=== PATIENT | female | born 1985 | race Caucasian/White ===

== ENCOUNTER 2016-11-15 02:42 | Inpatient (IN) | payer BC ==
[2016-11-15] MEDS ORDERED: Lidocaine 1% 50 ML MDV INJECT PRN (03:09)
[2016-11-15] MEDS ORDERED: Oxytocin/Lactated Ringers 10 UNIT/1,000 ML BAG IV SCH (03:15)
[2016-11-15] MEDS ORDERED: Lactated Ringers 1,000 ML ONE (03:15)
[2016-11-15] MEDS: Lactated Ringers 1,000 ML IV SCH ×2 (03:20→04:00)
[2016-11-15] MEDS ORDERED: fentaNYL 100 MCG/2 ML SDV ONE (03:54)
--- NOTE | 2016-11-15 03:57 | PCM.LDHP ---
L&D History of Present Illness - General Date of Service: 11/15/16 Admit Problem/Dx: Patient Status Order with Admit Dx/Problem 11/15/16 03:09 Patient Status [ADT] Routine Admission Diagnosis/Problem Admission Diagnosis/Problem Source of Information: Patient History Limitations: Reports: No Limitations - History of Present Illness Introduction:: 31 yo presents to labor and delivery at 40 weeks and 1 day with contractions for 5 hours. no leakage of fluid. no vaginal bleeding. good movement. Routine care without complications. A positive GBS negative. Location, : Reports: Abdomen Quality: Reports: Pressure Severity: Severe - Related Data Allergies/Adverse Reactions: Allergies Allergy/AdvReac Type Severity Reaction Status Date / Time codeine AdvReac Mild Nausea Verified 04/21/14 18:32 Home Medications: Home Meds Pnv with Ca,No.71/Iron/Fa [ Vitamin Tablet] 1 each PO DAILY 04/21/14 [ History] Acetaminophen [Tylenol] 650 mg PO Q6H PRN #50 tablet 04/24/14 [Rx] Docusate Sodium [Colace] 100 mg PO BID PRN #50 cap 04/24/14 [Rx] Ibuprofen [Motrin] 600 mg PO Q6H PRN #50 tablet 04/24/14 [Rx] Lanolin [Lansinoh HPA] 1 applic TOP ASDIRECTED PRN #1 crm 04/24/14 [Rx] Witch Candelaria [Tucks] 1 pad TOP ASDIRECTED PRN #50 pad 04/24/14 [Rx] Past Medical History : 2 Para: 1 - Past Surgical History HEENT Surgical History: Reports: Tonsillectomy Social & Family History - Tobacco Use Smoking Status *Q: Never Smoker - Alcohol Use Days Per Week of Alcohol Use: 0 - Recreational Drug Use Recreational Drug Use: No H&P Review of Systems - Review of Systems: Review Of Systems: See Below General: Reports: No Symptoms HEENT: Reports: No Symptoms Pulmonary: Reports: No Symptoms Cardiovascular: Reports: No Symptoms Gastrointestinal: Reports: No Symptoms Genitourinary: Reports: No Symptoms Musculoskeletal: Reports: No Symptoms Skin: Reports: No Symptoms Psychiatric: Reports: No Symptoms Neurological: Reports: No Symptoms Hematologic/Lymphatic: Reports: No Symptoms Immunologic: Reports: No Symptoms L&D Exam - Exam Exam: See Below - Vital Signs Weight: 76.657 kg - OB Specific Contraction Intensity: Moderate to Strong Movement: Active Heart Tones: Present Heart Tones per Min: 125 Heart Rate (FHR) Variability: Moderate (6-25 bmp) Presentation: Vertex Estimated Weight: 3250 grams - Holland Score Holland Score Cervix Position: Posterior Holland Score Consistency: Soft Holland Score Effacement: >80% Holland Score Dilation: > 5 cm Holland Score 's Station: -1 ,0 Holland Score Total: 10 - Exam General: Alert, Oriented Genitourinary: Normal external exam Extremities: Normal Inspection. No: Edema Skin: Warm, Dry - Patient Data Lab Results Last 24 hrs: Laboratory Results - last 24 hr 11/15/16 Range/Units 03:24 WBC 13.51 H (3.98-10.04) K/mm3 RBC 4.31 (3.98-5.22) M/mm3 Hgb 13.3 (11.2-15.7) gm/L Hct 39.1 (34.1-44.9) % MCV 90.7 (79.4-94.8) fl MCH 30.9 (25.6-32.2) pg MCHC 34.0 (32.2-35.5) g/dl RDW Std Deviation 47.0 H (36.4-46.3) fL Plt Count 247 (182-369) K/mm3 MPV 9.9 (9.4-12.3) fl Result Diagrams: 11/15/16 03:24 - Problem List (1) Normal labor SNOMED Code(s): 72752165 ICD Code: O80 - ENCOUNTER FOR FULL-TERM UNCOMPLICATED DELIVERY; Z37.9 - OUTCOME OF DELIVERY, UNSPECIFIED Status: Acute Current Visit: Yes Problem List Initiated/Reviewed/Updated: Yes Orders Last 24hrs: Active Orders 24 hr Category Date Time Status Patient Status [ADT] Routine ADT 11/15/16 03:09 Active Activity as Tolerated [RC] PFP Care 11/15/16 03:09 Active Communication Order [RC] ASDIRECTED Care 11/15/16 03:09 Active Heart Tones [RC] ASDIRECTED Care 11/15/16 03:09 Active Notify Provider [RC] PFP Care 11/15/16 03:09 Active Notify Provider [RC] PRN Care 11/15/16 03:09 Active Peripheral IV Care [RC] . DIRECTED Care 11/15/16 03:09 Active Vital Signs [RC] PER UNIT ROUTINE Care 11/15/16 03:09 Active Lactated Ringers [Ringers, Lactated] 1,000 ml Med 11/15/16 03:15 Active IV ASDIRECTED Lidocaine 1% [Xylocaine 1%] Med 11/15/16 03:09 Active 50 ml INJECT ONETIME PRN Oxytocin/Lactated Ringers [Pitocin in LR 10 Units/1,000 Med 11/15/16 03:15 Active ML] 10 unit in 1,000 ml IV ASDIRECTED Electronic Heart Tones Ext w TOCO [WOMSER] Oth 11/15/16 03:09 Ordered Routine Electronic Heart Tones Internal [WOMSER] Per Unit Oth 11/15/16 03:09 Ordered Routine Peripheral IV Insertion Adult [OM.PC] Routine Oth 11/15/16 03:09 Ordered Resuscitation Status Routine Resus Stat 11/15/16 03:09 Ordered Medication Orders Lactated Ringer's (Ringers, Lactated) 1,000 mls @ 100 mls/hr IV ASDIRECTED [facility] Last Admin: 11/15/16 03:20 Dose: 999 mls/hr Oxytocin/Lactated Ringer's (Pitocin In Lr 10 Units/1,000 Ml) 10 unit in 1,000 mls @ 100 mls/hr IV ASDIRECTED [facility] Lidocaine HCl (Xylocaine 1%) 50 ml INJECT ONETIME PRN PRN Reason: Other Assessment/Plan Comment:: 31 yo presenting to labor and delivery in active labor Pt desires epidural. GBS negative Expectant management. anticipate vaginal delivery.
[2016-11-15] MEDS ORDERED: diphenhydrAMINE 50 MG/ML SDV IVPUSH PRN (04:04)
[2016-11-15] MEDS ORDERED: fentaNYL 100 MCG/2 ML SDV EPIDUR PRN (04:04)
[2016-11-15] MEDS ORDERED: ePHEDrine 50 MG/ML SDV IVPUSH PRN (04:04)
--- NOTE | 2016-11-15 04:06 | PCM.PREANE ---
Preanesthetic Assessment - Anesthesia/Transfusion/Family Hx Anesthesia History: Prior Anesthesia Without Reaction Family History of Anesthesia Reaction: No Transfusion History: No Prior Transfusion(s) - Review of Systems General: No Symptoms Pulmonary: No Symptoms Cardiovascular: No Symptoms Gastrointestinal: No symptoms Neurological: No Symptoms Other: Reports: None - Physical Assessment Pulse: 96 O2 Sat by Pulse Oximetry: 100 Respiratory Rate: 22 Blood Pressure: 136/64 Temperature: 36.6 C Height: 1.65 m Weight: 76.657 kg ASA Class: 2 Mental Status: Alert & Oriented x3 Airway Class: Mallampati = 1 Dentition: Reports: Normal Dentition Thyro-Mental Finger Breadths: 3 Mouth Opening Finger Breadths: 3 ROM/Head Extension: Full Lungs: Clear to auscultation, Normal respiratory effort Cardiovascular: Regular Rate, Regular Rhythm, No Murmurs - Lab Values: Laboratory Last Values WBC 13.51 K/mm3 (3.98-10.04) H 11/15/16 03:24 RBC 4.31 M/mm3 (3.98-5.22) 11/15/16 03:24 Hgb 13.3 gm/L (11.2-15.7) 11/15/16 03:24 Hct 39.1 % (34.1-44.9) 11/15/16 03:24 MCV 90.7 fl (79.4-94.8) 11/15/16 03:24 MCH 30.9 pg (25.6-32.2) 11/15/16 03:24 MCHC 34.0 g/dl (32.2-35.5) 11/15/16 03:24 RDW Std Deviation 47.0 fL (36.4-46.3) H 11/15/16 03:24 Plt Count 247 K/mm3 (182-369) 11/15/16 03:24 MPV 9.9 fl (9.4-12.3) 11/15/16 03:24 - Allergies Allergies/Adverse Reactions: Allergies Allergy/AdvReac Type Severity Reaction Status Date / Time codeine AdvReac Mild Nausea Verified 04/21/14 18:32 - Acknowledgements Anesthesia Type Planned: Epidural Pt an Appropriate Candidate for the Planned Anesthesia: Yes Alternatives and Risks of Anesthesia Discussed w Pt/Guardian: Yes Pt/Guardian Understands and Agrees with Anesthesia Plan: Yes PreAnesthesia Questionnaire Gastrointestinal History: Reports: GERD - Past Surgical History HEENT Surgical History: Reports: Tonsillectomy - SUBSTANCE USE Smoking Status *Q: Never Smoker Days Per Week of Alcohol Use: 0 Recreational Drug Use History: No - HOME MEDS Home Medications: Home Meds Pnv with Ca,No.71/Iron/Fa [ Vitamin Tablet] 1 each PO DAILY 04/21/14 [ History] Acetaminophen [Tylenol] 650 mg PO Q6H PRN #50 tablet 04/24/14 [Rx] Docusate Sodium [Colace] 100 mg PO BID PRN #50 cap 04/24/14 [Rx] Ibuprofen [Motrin] 600 mg PO Q6H PRN #50 tablet 04/24/14 [Rx] Lanolin [Lansinoh HPA] 1 applic TOP ASDIRECTED PRN #1 crm 04/24/14 [Rx] Petar Gaona [Tucks] 1 pad TOP ASDIRECTED PRN #50 pad 04/24/14 [Rx] - CURRENT (IN HOUSE) MEDS Current Meds: Current Medications Lactated Ringer's (Ringers, Lactated) 1,000 mls @ 100 mls/hr IV ASDIRECTED [facility] Last Admin: 11/15/16 04:00 Dose: 125 mls/hr Oxytocin/Lactated Ringer's (Pitocin In Lr 10 Units/1,000 Ml) 10 unit in 1,000 mls @ 100 mls/hr IV ASDIRECTED [facility] Lidocaine HCl (Xylocaine 1%) 50 ml INJECT ONETIME PRN PRN Reason: Other Discontinued Medications Fentanyl (Sublimaze) Confirm Administered Dose 100 mcg .ROUTE .STK-MED ONE Stop: 11/15/16 03:55 Last Admin: 11/15/16 04:01 Dose: 100 mcg Lactated Ringer's (Ringers, Lactated) Confirm Administered Dose 1,000 mls @ as directed .ROUTE .STK-MED ONE Stop: 11/15/16 03:16 Last Admin: 11/15/16 03:39 Dose: Not Given
[2016-11-15] MEDS ORDERED: Bupivacaine/fentaNYL/NS 100 ML Bag EPIDUR SCH (04:15)
[2016-11-15] MEDS ORDERED: Docusate Sodium 100 MG Cap PO PRN ×2 (05:58→06:01)
[2016-11-15] MEDS ORDERED: Ibuprofen 600 MG Tab PO PRN (05:58)
[2016-11-15] MEDS ORDERED: Benzocaine/Menthol 20%-0.5% Spray 56 GM Canister TOP PRN (05:58)
[2016-11-15] MEDS ORDERED: Witch Hazel Medicated Pads 100/Jar TOP PRN ×2 (05:58→06:01)
[2016-11-15] MEDS ORDERED: Lanolin 100% Cream 7 GM Tube TOP PRN ×2 (05:58→06:01)
[2016-11-15] MEDS ORDERED: Acetaminophen 325 MG Tab PO PRN ×2 (05:58→06:01)
--- NOTE | 2016-11-15 06:06 | PCM.DEL ---
L & D Note - General Info Date of Service: 11/15/16 Mother's Due Date: 11/14/16 - Delivery Note Labor: spontaneous Delivery Outcome: Livebirth Infant Delivery Method: Spontaneous Vaginal Delivery Presentation: Left Occiput Posterior (LOP) Nuchal Cord: None Anesthesia Type: Epidural Anesthetic: Lidocaine (Xylocaine) 1% Plain Local Anesthetic Volume: 2cc Amniotic Fluid Description: Clear Episiotomy Type: None Laceration: 2nd degree Suture type: vicryl Suture size: 3-0 Placenta: intact, spontaneous Cord: 3 vessels Estimated Blood Loss: 300 Resuscitation Needed: No : Suctioned Score 1 min: 8 Score 5 min: 9 - Patient Data Vitals - most recent: Last Vital Signs Temp 36.6 C 11/15/16 04:06 Pulse 96 11/15/16 04:06 Resp 22 H 11/15/16 04:06 BP 136/64 11/15/16 04:06 Pulse Ox 100 11/15/16 04:06 Weight - most recent: 76.657 kg Lab Results last 24 hrs: Laboratory Results - last 24 hr 11/15/16 Range/Units 03:24 WBC 13.51 H (3.98-10.04) K/mm3 RBC 4.31 (3.98-5.22) M/mm3 Hgb 13.3 (11.2-15.7) gm/L Hct 39.1 (34.1-44.9) % MCV 90.7 (79.4-94.8) fl MCH 30.9 (25.6-32.2) pg MCHC 34.0 (32.2-35.5) g/dl RDW Std Deviation 47.0 H (36.4-46.3) fL Plt Count 247 (182-369) K/mm3 MPV 9.9 (9.4-12.3) fl Med Orders - Current: Current Medications Acetaminophen (Tylenol) 650 mg PO Q4H PRN PRN Reason: mild pain or fever Acetaminophen (Tylenol) 650 mg PO Q6H PRN PRN Reason: Pain Benzocaine/Menthol (Dermoplast Pain Relief [place]) 0 gm TOP ASDIRECTED PRN PRN Reason: Perineal Comfort Measure Diphenhydramine HCl (Benadryl) 25 mg IVPUSH Q6H PRN PRN Reason: Itching Docusate Sodium (Colace) 100 mg PO BID PRN PRN Reason: Constipation Docusate Sodium (Colace) 100 mg PO BID PRN PRN Reason: Constipation Emollient Ointment (Lansinoh Hpa) 0 gm TOP ASDIRECTED PRN PRN Reason: Sore Nipples Emollient Ointment (Lansinoh Hpa) gm TOP ASDIRECTED PRN PRN Reason: Pain Ephedrine Sulfate (Ephedrine Sulfate) 5 mg IVPUSH ASDIRECTED PRN PRN Reason: HYPOTENSION Fentanyl (Sublimaze) 100 mcg EPIDUR Q3H PRN PRN Reason: PAIN Last Admin: 11/15/16 04:25 Dose: 100 mcg Fentanyl/Bupivacaine HCl (Fentanyl/Bupivacaine/Ns 2 Mcg-0.125% 100 Ml) 100 ml EPIDUR ASDIRECTED [facility] Last Admin: 11/15/16 04:16 Dose: 100 ml Lactated Ringer's (Ringers, Lactated) 1,000 mls @ 100 mls/hr IV ASDIRECTED [facility] Last Admin: 11/15/16 04:00 Dose: 125 mls/hr Oxytocin/Lactated Ringer's (Pitocin In Lr 10 Units/1,000 Ml) 10 unit in 1,000 mls @ 100 mls/hr IV ASDIRECTED [facility] Ibuprofen (Motrin) 600 mg PO Q4H PRN PRN Reason: Mild pain or fever Ibuprofen (Motrin) 600 mg PO Q6H PRN PRN Reason: Pain Lidocaine HCl (Xylocaine 1%) 50 ml INJECT ONETIME PRN PRN Reason: Other Last Admin: 11/15/16 05:58 Dose: 50 ml Non-Formulary Medication (Pnv With Ca,No.71/Iron/Fa [ Vitamin Tablet]) 1 each PO DAILY [facility] Witch Candelaria (Tucks) 1 pad TOP ASDIRECTED PRN PRN Reason: Hemorrhoid pain Witch Candelaria (Tucks) 1 pad TOP ASDIRECTED PRN PRN Reason: Perineal Comfort Measure Discontinued Medications Fentanyl (Sublimaze) Confirm Administered Dose 100 mcg .ROUTE .STK-MED ONE Stop: 11/15/16 03:55 Last Admin: 11/15/16 04:01 Dose: 100 mcg Lactated Ringer's (Ringers, Lactated) Confirm Administered Dose 1,000 mls @ as directed .ROUTE .STK-MED ONE Stop: 11/15/16 03:16 Last Admin: 11/15/16 03:39 Dose: Not Given - Problem List & Annotations (1) Normal labor SNOMED Code(s): 49931712 Code(s): O80 - ENCOUNTER FOR FULL-TERM UNCOMPLICATED DELIVERY; Z37.9 - OUTCOME OF DELIVERY, UNSPECIFIED Status: Acute Current Visit: Yes - Problem List Review Problem List Initiated/Reviewed/Updated: Yes - My Orders Last 24 Hours: My Active Orders 11/15/16 03:09 Patient Status [ADT] Routine Activity as Tolerated [RC] PFP Communication Order [RC] ASDIRECTED Notify Provider [RC] PFP Notify Provider [RC] PRN Peripheral IV Care [RC] . DIRECTED Vital Signs [RC] PER UNIT ROUTINE Lidocaine 1% [Xylocaine 1%] 50 ml INJECT ONETIME PRN Electronic Heart Tones Ext w TOCO [WOMSER] Routine Electronic Heart Tones Internal [WOMSER] Per Unit Routine Peripheral IV Insertion Adult [OM.PC] Routine Resuscitation Status Routine 11/15/16 03:15 Lactated Ringers [Ringers, Lactated] 1,000 ml IV ASDIRECTED Oxytocin/Lactated Ringers [Pitocin in LR 10 Units/1,000 ML] 10 unit in 1,000 ml IV ASDIRECTED 11/15/16 05:58 Acetaminophen [Tylenol] 650 mg PO Q4H PRN Benzocaine/Menthol [Dermoplast Pain Relief [place]] See Dose Instructions TOP ASDIRECTED PRN Docusate Sodium [Colace] 100 mg PO BID PRN Ibuprofen [Motrin] 600 mg PO Q4H PRN Lanolin [Lansinoh HPA] See Dose Instructions TOP ASDIRECTED PRN Witch Candelaria [Tucks] 1 pad TOP ASDIRECTED PRN 11/15/16 05:59 Patient Status [ADT] Routine Activity as Tolerated [RC] PER UNIT ROUTINE Vital Signs [RC] ASDIRECTED Assess Lochia [WOMSER] Per Unit Routine Assess Uterine Involution [WOMSER] Per Unit Routine Breast Pump [WOMSER] Per Unit Routine Medication Administration Instruction [OM.PC] Routine Perineal Care [OM.PC] Per Unit Routine Sitz Bath [OM.PC] Per Unit Routine 11/15/16 06:00 Heat Therapy [OM.PC] PRN 11/15/16 06:01 Acetaminophen [Tylenol] 650 mg PO Q6H PRN Docusate Sodium [Colace] 100 mg PO BID PRN Ibuprofen [Motrin] 600 mg PO Q6H PRN Lanolin [Lansinoh HPA] 1 applic TOP ASDIRECTED PRN Witch Candelaria [Tucks] 1 pad TOP ASDIRECTED PRN 11/15/16 09:00 Pnv with Ca,No.71/Iron/Fa [ Vitamin Tablet] 1 each PO DAILY 11/15/16 Breakfast Regular Diet [DIET] 11/16/16 05:11 HEMOGLOBIN/HEMATOCRIT,HH [HEME] AM 11/16/16 06:00 Heat Therapy [OM.PC] PRN - Plan Plan:: 31 yo presenting to labor and delivery in active labor Pt desires epidural. GBS negative Expectant management. anticipate vaginal delivery.
[2016-11-15] MEDS: Prenatal Multivitamin with Calcium/Folic Acid/Iron Tab PO SCH (09:12)
[2016-11-15] MEDS: Ibuprofen 600 MG Tab PO PRN ×2 (10:48→18:13)
[2016-11-15] MEDS ORDERED: Bupivacaine 0.25% 10 ML SDV ONE (22:22)
[2016-11-16] MEDS: Ibuprofen 600 MG Tab PO PRN (03:27)
--- NOTE | 2016-11-16 07:10 | PCM.PNPP ---
- General Info Date of Service: 11/16/16 Functional Status: Reports: pain controlled, tolerating diet, ambulating, urinating - Review of Systems General: Reports: No Symptoms Pulmonary: Reports: no symptoms Cardiovascular: Reports: No Symptoms Gastrointestinal: Reports: No symptoms Genitourinary: Reports: no symptoms Musculoskeletal: Reports: no symptoms - Patient Data Vital Signs - most recent: Last Vital Signs Temp 36.7 C 11/16/16 03:24 Pulse 88 11/16/16 03:24 Resp 14 11/16/16 03:24 BP 123/77 11/16/16 03:24 Pulse Ox 98 11/16/16 03:24 Weight - most recent: 76.657 kg I&O - last 24 hours: Intake & Output 11/15/16 11/16/16 11/16/16 22:59 06:59 14:59 Intake Total 600 Balance 600 Lab Results - last 24 hrs: Laboratory Results - last 24 hr 11/16/16 Range/Units 05:20 Hgb 10.2 L (11.2-15.7) gm/L Hct 30.9 L (34.1-44.9) % Med Orders - Current: Current Medications Acetaminophen (Tylenol) 650 mg PO Q6H PRN PRN Reason: Pain Benzocaine/Menthol (Dermoplast Pain Relief [place]) 0 gm TOP ASDIRECTED PRN PRN Reason: Perineal Comfort Measure Last Admin: 11/15/16 07:56 Dose: 1 applic Diphenhydramine HCl (Benadryl) 25 mg IVPUSH Q6H PRN PRN Reason: Itching Docusate Sodium (Colace) 100 mg PO BID PRN PRN Reason: Constipation Emollient Ointment (Lansinoh Hpa) 0 gm TOP ASDIRECTED PRN PRN Reason: Sore Nipples Last Admin: 11/15/16 18:11 Dose: 1 applic Ephedrine Sulfate (Ephedrine Sulfate) 5 mg IVPUSH ASDIRECTED PRN PRN Reason: HYPOTENSION Fentanyl (Sublimaze) 100 mcg EPIDUR Q3H PRN PRN Reason: PAIN Last Admin: 11/15/16 04:25 Dose: 100 mcg Fentanyl/Bupivacaine HCl (Fentanyl/Bupivacaine/Ns 2 Mcg-0.125% 100 Ml) 100 ml EPIDUR ASDIRECTED [facility] Last Admin: 11/15/16 04:16 Dose: 100 ml Lactated Ringer's (Ringers, Lactated) 1,000 mls @ 100 mls/hr IV ASDIRECTED [facility] Last Admin: 11/15/16 04:00 Dose: 125 mls/hr Oxytocin/Lactated Ringer's (Pitocin In Lr 10 Units/1,000 Ml) 10 unit in 1,000 mls @ 100 mls/hr IV ASDIRECTED [facility] Last Admin: 11/15/16 05:35 Dose: 500 mls/hr Ibuprofen (Motrin) 600 mg PO Q6H PRN PRN Reason: Pain Last Admin: 11/16/16 03:27 Dose: 600 mg Lidocaine HCl (Xylocaine 1%) 50 ml INJECT ONETIME PRN PRN Reason: Other Last Admin: 11/15/16 05:58 Dose: 50 ml Prenat Multivit/Weight Trainer/Iron/Folic Ac ( Plus Iron) 1 each PO DAILY [facility] Last Admin: 11/15/16 09:12 Dose: 1 each Witch Candelaria (Tucks) 1 pad TOP ASDIRECTED PRN PRN Reason: Hemorrhoid pain Last Admin: 11/15/16 07:56 Dose: 1 applic Discontinued Medications Acetaminophen (Tylenol) 650 mg PO Q4H PRN PRN Reason: mild pain or fever Docusate Sodium (Colace) 100 mg PO BID PRN PRN Reason: Constipation Emollient Ointment (Lansinoh Hpa) gm TOP ASDIRECTED PRN PRN Reason: Pain Fentanyl (Sublimaze) Confirm Administered Dose 100 mcg .ROUTE .STK-MED ONE Stop: 11/15/16 03:55 Last Admin: 11/15/16 04:01 Dose: 100 mcg Lactated Ringer's (Ringers, Lactated) Confirm Administered Dose 1,000 mls @ as directed .ROUTE .STK-MED ONE Stop: 11/15/16 03:16 Last Admin: 11/15/16 03:39 Dose: Not Given Ibuprofen (Motrin) 600 mg PO Q4H PRN PRN Reason: Mild pain or fever Witch Candelaria (Tucks) 1 pad TOP ASDIRECTED PRN PRN Reason: Perineal Comfort Measure - Interaction Infant Disposition, : [place] in Room with Family Interaction: Holding Infant Infant Feeding: Breastfed Infant; Nursed Well Support Person: - Recovery Exam Fundal Tone: Firm Fundal Level: 1 Fingerbreadths Below Umbilicus Fundal Placement: Midline Lochia Amount: Small Lochia Color: Rubra/Red Perineum Description: Other (see below) Other Perinuem Description: 2nd degree with repair Episiotomy/Laceration: Approximated Bladder Status: Voiding - Exam General: alert, oriented, cooperative Abdomen: soft, no tenderness Extremities: no edema Skin: warm, dry, intact - Problem List & Annotations (1) Normal labor SNOMED Code(s): 13052028 Code(s): O80 - ENCOUNTER FOR FULL-TERM UNCOMPLICATED DELIVERY; Z37.9 - OUTCOME OF DELIVERY, UNSPECIFIED Status: Acute Current Visit: Yes (2) Vaginal delivery SNOMED Code(s): 958768457 Code(s): O80 - ENCOUNTER FOR FULL-TERM UNCOMPLICATED DELIVERY Status: Acute Current Visit: No - Problem List Review Problem List Initiated/Reviewed/Updated: Yes - My Orders Last 24 Hours: My Active Orders 11/16/16 07:09 Ready for Discharge [RC] PER UNIT ROUTINE - Assessment Assessment:: 31 y/o G2 now P2002 PPD#1 from at 40 1/7 wks - Plan Plan:: * Routine cares * Encourage breast feeding * Discharge home today
--- NOTE | 2016-11-16 07:10 | PCM.DCSUM1 ---
Discharge Summary - Discharge Data Discharge Date: 11/16/16 Discharge Disposition: Home, Self-Care 01 Condition: Good - Patient Summary/Data Complications: None Consults: None Recommended Follow-up Testing/Procedures: Follow up with Dr. Marte in 5-6 weeks for check Hospital Course: Patient is a 31 y/o at 40 1/7 wks presented in labor. She did well and underwent an uncomplicated . See delivery note. she did well and was discharged home on PPD#1 - Patient Instructions Diet: Regular Diet as Tolerated Activity: As Tolerated Activity, Other: Pelvic Rest for 6 weeks Driving: May Drive Today Showering/Bathing: May Shower Showering/Bathing, Other: May Bathe Notify Provider of: Fever, Increased Pain, Swelling and Redness, Drainage, Nausea and/or Vomiting - Discharge Plan Home Medications: Home Meds Pnv with Ca,No.71/Iron/Fa [ Vitamin Tablet] 1 each PO DAILY 04/21/14 [ History] Ibuprofen [IJD: Ibuprofen] 600 mg PO Q6H PRN #0 tablet 11/16/16 [Rx] Referrals: Mary Robert MD [Primary Care Provider] - (5-6 weeks for check ) - Discharge Summary/Plan Comment DC Time >30 min.: No - Patient Data Vitals - Most Recent: Last Vital Signs Temp 36.7 C 11/16/16 03:24 Pulse 88 11/16/16 03:24 Resp 14 11/16/16 03:24 BP 123/77 11/16/16 03:24 Pulse Ox 98 11/16/16 03:24 Weight - Most Recent: 76.657 kg I&O - Last 24 hours: Intake & Output 11/15/16 11/16/16 11/16/16 22:59 06:59 14:59 Intake Total 600 Balance 600 Lab Results - Last 24 hrs: Laboratory Results - last 24 hr 11/16/16 Range/Units 05:20 Hgb 10.2 L (11.2-15.7) gm/L Hct 30.9 L (34.1-44.9) % Med Orders - Current: Current Medications Acetaminophen (Tylenol) 650 mg PO Q6H PRN PRN Reason: Pain Benzocaine/Menthol (Dermoplast Pain Relief [place]) 0 gm TOP ASDIRECTED PRN PRN Reason: Perineal Comfort Measure Last Admin: 11/15/16 07:56 Dose: 1 applic Diphenhydramine HCl (Benadryl) 25 mg IVPUSH Q6H PRN PRN Reason: Itching Docusate Sodium (Colace) 100 mg PO BID PRN PRN Reason: Constipation Emollient Ointment (Lansinoh Hpa) 0 gm TOP ASDIRECTED PRN PRN Reason: Sore Nipples Last Admin: 11/15/16 18:11 Dose: 1 applic Ephedrine Sulfate (Ephedrine Sulfate) 5 mg IVPUSH ASDIRECTED PRN PRN Reason: HYPOTENSION Fentanyl (Sublimaze) 100 mcg EPIDUR Q3H PRN PRN Reason: PAIN Last Admin: 11/15/16 04:25 Dose: 100 mcg Fentanyl/Bupivacaine HCl (Fentanyl/Bupivacaine/Ns 2 Mcg-0.125% 100 Ml) 100 ml EPIDUR ASDIRECTED [facility] Last Admin: 11/15/16 04:16 Dose: 100 ml Lactated Ringer's (Ringers, Lactated) 1,000 mls @ 100 mls/hr IV ASDIRECTED [facility] Last Admin: 11/15/16 04:00 Dose: 125 mls/hr Oxytocin/Lactated Ringer's (Pitocin In Lr 10 Units/1,000 Ml) 10 unit in 1,000 mls @ 100 mls/hr IV ASDIRECTED [facility] Last Admin: 11/15/16 05:35 Dose: 500 mls/hr Ibuprofen (Motrin) 600 mg PO Q6H PRN PRN Reason: Pain Last Admin: 11/16/16 03:27 Dose: 600 mg Lidocaine HCl (Xylocaine 1%) 50 ml INJECT ONETIME PRN PRN Reason: Other Last Admin: 11/15/16 05:58 Dose: 50 ml Prenat Multivit/Mixer Tender/Iron/Folic Ac ( Plus Iron) 1 each PO DAILY [facility] Last Admin: 11/15/16 09:12 Dose: 1 each Witch Candelaria (Tucks) 1 pad TOP ASDIRECTED PRN PRN Reason: Hemorrhoid pain Last Admin: 11/15/16 07:56 Dose: 1 applic Discontinued Medications Acetaminophen (Tylenol) 650 mg PO Q4H PRN PRN Reason: mild pain or fever Docusate Sodium (Colace) 100 mg PO BID PRN PRN Reason: Constipation Emollient Ointment (Lansinoh Hpa) gm TOP ASDIRECTED PRN PRN Reason: Pain Fentanyl (Sublimaze) Confirm Administered Dose 100 mcg .ROUTE .STK-MED ONE Stop: 11/15/16 03:55 Last Admin: 11/15/16 04:01 Dose: 100 mcg Lactated Ringer's (Ringers, Lactated) Confirm Administered Dose 1,000 mls @ as directed .ROUTE .STK-MED ONE Stop: 11/15/16 03:16 Last Admin: 11/15/16 03:39 Dose: Not Given Ibuprofen (Motrin) 600 mg PO Q4H PRN PRN Reason: Mild pain or fever Petar Gaona (Cely) 1 pad TOP ASDIRECTED PRN PRN Reason: Perineal Comfort Measure *Q Meaningful Use (DIS) - VTE *Q VTE Criteria *Q: - Stroke *Q Stroke Criteria *Q: - AMI *Q AMI Criteria *Q:
[2016-11-16 09:42] VITALS: BP 117/67
[2016-11-16] MEDS: Prenatal Multivitamin with Calcium/Folic Acid/Iron Tab PO SCH (09:53)
== END 2016-11-16 09:55 | disposition home or self-care (01) | DRG 560 ==
LOC: JD.OBCHECK 02:42 → JD.OB 02:44 → JD.OBCHECK 03:09 → JD.OB 03:09 → OBSVTOIN 05:28
PROVIDERS: ADMIT Family Medicine; ATTEND Family Medicine
PROC: 10E0XZZ Delivery of Products of Conception, External Approach (ICD-10-PCS; principal; 2016-11-15)
PROC: 4A1HXFZ Monitoring of Products of Conception, Cardiac Rhythm, External Approach (ICD-10-PCS; 2016-11-15)
PROC: 0KQM0ZZ Repair Perineum Muscle, Open Approach (ICD-10-PCS; 2016-11-15)
PROC: 3E0S3BZ Introduction of Anesthetic Agent into Epidural Space, Percutaneous Approach (ICD-10-PCS; 2016-11-15)
PROC: 00HU33Z Insertion of Infusion Device into Spinal Canal, Percutaneous Approach (ICD-10-PCS; 2016-11-15)
DX: O70.1 Second degree perineal laceration during delivery (principal); Z3A.40 40 weeks gestation of pregnancy; Z37.0 Single live birth
CPT/HCPCS: 01967; 36415; 85014; 85018; 85027; A9270-GY; J2590; J3010; J7120

== ENCOUNTER 2018-11-04 09:54 | Inpatient (IN) | payer OTHER ==
[2018-11-04] MEDS ORDERED: Oxytocin/Lactated Ringers 10 UNIT/1,000 ML BAG IV SCH (12:00)
[2018-11-04] MEDS ORDERED: Lidocaine 1% 50 ML MDV INJECT ONE (12:00)
[2018-11-04] MEDS ORDERED: Ondansetron 4 MG/2 ML SDV IVPUSH PRN (12:00)
[2018-11-04] MEDS ORDERED: Bupivacaine 0.25% 10 ML SDV ONE (12:00)
[2018-11-04] MEDS ORDERED: Nalbuphine 20 MG/ML 1 ML Syringe IVPUSH PRN (12:00)
[2018-11-04] MEDS ORDERED: Calcium Carbonate 500 MG Tab.Chew PO PRN (12:00)
[2018-11-04] MEDS ORDERED: Sodium Chloride 0.9% 10 ML Syringe FLUSH PRN (12:00)
[2018-11-04] MEDS: Lactated Ringers 1,000 ML IV SCH ×3 (12:20→13:37)
[2018-11-04] MEDS ORDERED: Bupivacaine/fentaNYL/NS 100 ML Bag EPIDUR PRN (12:38)
[2018-11-04] MEDS ORDERED: ePHEDrine 50 MG/ML SDV IVPUSH PRN (12:38)
[2018-11-04] MEDS ORDERED: diphenhydrAMINE 50 MG/ML SDV IVPUSH PRN (12:38)
[2018-11-04] MEDS ORDERED: fentaNYL 100 MCG/2 ML SDV EPIDUR PRN (12:38)
--- NOTE | 2018-11-04 13:19 | PCM.PREANE ---
Preanesthetic Assessment - Procedure Proposed Procedure: alberto - Anesthesia/Transfusion/Family Hx Anesthesia History: Prior Anesthesia Without Reaction Family History of Anesthesia Reaction: No Transfusion History: No Prior Transfusion(s) - Review of Systems General: No Symptoms Pulmonary: No Symptoms, Other (getting over bronchitis) Cardiovascular: No Symptoms Gastrointestinal: No Symptoms Neurological: No Symptoms - Physical Assessment Respiratory Rate: 16 Vital Signs: Last Vital Signs Temp 98.2 F 11/04/18 10:28 Pulse 100 11/04/18 10:28 Resp 16 11/04/18 10:28 BP 124/73 11/04/18 10:28 Pulse Ox Height: 5 ft 5 in Weight: 75.07 kg ASA Class: 5E Emergency Mental Status: Alert & Oriented x3 Thyro-Mental Finger Breadths: 3 Mouth Opening Finger Breadths: 3 ROM/Head Extension: Full Lungs: Clear to Auscultation, Normal Respiratory Effort Cardiovascular: Regular Rate, Regular Rhythm - Lab Values: Laboratory Last Values WBC 14.59 K/mm3 (3.98-10.04) H 11/04/18 12:20 RBC 4.28 M/mm3 (3.98-5.22) 11/04/18 12:20 Hgb 12.8 gm/L (11.2-15.7) 11/04/18 12:20 Hct 39.0 % (34.1-44.9) 11/04/18 12:20 MCV 91.1 fl (79.4-94.8) 11/04/18 12:20 MCH 29.9 pg (25.6-32.2) 11/04/18 12:20 MCHC 32.8 g/dl (32.2-35.5) 11/04/18 12:20 RDW Std Deviation 45.0 fL (36.4-46.3) 11/04/18 12:20 Plt Count 233 K/mm3 (182-369) 11/04/18 12:20 MPV 9.2 fl (9.4-12.3) L 11/04/18 12:20 Neut % (Auto) 84.4 % (34.0-71.1) H 11/04/18 12:20 Lymph % (Auto) 9.5 % (19.3-51.7) L 11/04/18 12:20 [place] % (Auto) 5.3 % (4.7-12.5) 11/04/18 12:20 Eos % (Auto) 0.3 (0.7-5.8) L 11/04/18 12:20 Baso % (Auto) 0.1 % (0.1-1.2) 11/04/18 12:20 Neut # (Auto) 12.32 K/mm3 (1.56-6.13) H 11/04/18 12:20 Lymph # (Auto) 1.38 K/mm3 (1.18-3.74) 11/04/18 12:20 [place] # (Auto) 0.77 K/mm3 (0.24-0.36) H 11/04/18 12:20 Eos # (Auto) 0.05 K/mm3 (0.04-0.36) 11/04/18 12:20 Baso # (Auto) 0.01 K/mm3 (0.01-0.08) 11/04/18 12:20 Manual Slide Review Abnormal smear 11/04/18 12:20 - Allergies Allergies/Adverse Reactions: Allergies Allergy/AdvReac Type Severity Reaction Status Date / Time No Known Allergies Allergy Verified 11/04/18 10:28 - Blood Blood Available: No - Acknowledgements Anesthesia Type Planned: Epidural Pt an Appropriate Candidate for the Planned Anesthesia: Yes Alternatives and Risks of Anesthesia Discussed w Pt/Guardian: Yes Pt/Guardian Understands and Agrees with Anesthesia Plan: Yes PreAnesthesia Questionnaire HEENT History: Reports: Impaired Vision Other HEENT History: wears glasses Cardiovascular History: Reports: None Respiratory History: Reports: None Gastrointestinal History: Reports: 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: - Past Surgical History HEENT Surgical History: Reports: Tonsillectomy Female Surgical History: Reports: Other (See Below) (popyp removed from uterus) Musculoskeletal Surgical History: Reports: Other (See Below) (foreign body foot) - SUBSTANCE USE Smoking Status *Q: Never Smoker Tobacco Use Within Last Twelve Months: No Second Hand Smoke Exposure: No Days Per Week of Alcohol Use: 0 Recreational Drug Use History: No - HOME MEDS Home Medications: Home Meds Pnv No.122/Iron/Folic Acid [ Multi Tablet] 1 each PO DAILY 11/04/18 [ History] - CURRENT (IN HOUSE) MEDS Current Meds: Current Medications Calcium Carbonate/Glycine (Tums) 1,000 mg PO Q2H PRN PRN Reason: Indigestion Diphenhydramine HCl (Benadryl) 25 mg IVPUSH Q6H PRN PRN Reason: pruritis Ephedrine Sulfate (Ephedrine Sulfate) 5 mg IVPUSH ASDIRECTED PRN PRN Reason: Hypotension Fentanyl (Sublimaze) 100 mcg EPIDUR Q3H PRN PRN Reason: Pain Last Admin: 11/04/18 13:16 Dose: 100 mcg Fentanyl/Bupivacaine HCl (Fentanyl/Bupivacaine/Ns 2 Mcg-0.125% 100 Ml) 100 ml EPIDUR ASDIRECTED PRN PRN Reason: Pain Last Admin: 11/04/18 13:16 Dose: 100 ml Lactated Ringer's (Ringers, Lactated) 1,000 mls @ 100 mls/hr IV ASDIRECTED BRAYDEN Last Admin: 11/04/18 12:20 Dose: 999 mls/hr Oxytocin/Lactated Ringer's (Pitocin In Lr 10 Units/1,000 Ml) 10 unit in 1,000 mls @ 500 mls/hr IV .CONTINUOUS BRAYDEN Nalbuphine HCl (Nubain) 10 mg IVPUSH Q2H PRN PRN Reason: pain Ondansetron HCl (Zofran) 4 mg IVPUSH Q4H PRN PRN Reason: Nausea/Vomiting Sodium Chloride (Saline Flush) 10 ml FLUSH ASDIRECTED PRN PRN Reason: Keep Vein Open Discontinued Medications Lidocaine HCl (Xylocaine 1%) 20 ml INJECT ONETIME ONE Stop: 11/04/18 12:01
--- NOTE | 2018-11-04 16:38 | PCM.LDHP ---
L&D History of Present Illness - General Date of Service: 11/04/18 Admit Problem/Dx: Patient Status Order with Admit Dx/Problem 11/04/18 10:10 Patient Status [ADT] Routine 11/04/18 12:01 Patient Status [ADT] Routine Admission Diagnosis/Problem Admission Diagnosis/Problem Active labor Source of Information: Patient - History of Present Illness Introduction:: 33 year old at 37w here in active labor. PNC with Dr. Castro without complications. Cervical change from 1 in clinic to 3 on arrival and now 4 cm. 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: - Past Surgical History HEENT Surgical History: Reports: Tonsillectomy Female Surgical History: Reports: Other (See Below) (popyp removed from uterus) Musculoskeletal Surgical History: Reports: Other (See Below) (foreign body foot) Social & Family History - Family History Family Medical History: Noncontributory - Tobacco Use Smoking Status *Q: Never Smoker Second Hand Smoke Exposure: No - Caffeine Use Caffeine Use: Reports: None - Alcohol Use Days Per Week of Alcohol Use: 0 - Recreational Drug Use Recreational Drug Use: No H&P Review of Systems - Review of Systems: Review Of Systems: See Below General: Reports: No Symptoms HEENT: Reports: No Symptoms Pulmonary: Reports: No Symptoms Cardiovascular: Reports: No Symptoms Gastrointestinal: Reports: No Symptoms Genitourinary: Reports: No Symptoms Musculoskeletal: Reports: No Symptoms Skin: Reports: No Symptoms Psychiatric: Reports: No Symptoms Neurological: Reports: No Symptoms Hematologic/Lymphatic: Reports: No Symptoms Immunologic: Reports: No Symptoms L&D Exam - Exam Exam: See Below - Vital Signs Vital Signs: Last Vital Signs Temp 36.8 C 11/04/18 10:28 Pulse 100 11/04/18 10:28 Resp 16 11/04/18 13:19 BP 124/73 11/04/18 10:28 Pulse Ox Weight: 75.07 kg - OB Specific Contraction Intensity: Moderate to Strong Movement: Active Heart Tones: Present Heart Rate (FHR) Variability: Moderate (6-25 bmp) Presentation: Vertex - Holland Score Holland Score Cervix Position: Midposition Holland Score Consistency: Soft Holland Score Effacement: >80% Holland Score Dilation: 3-4 cm Holland Score 's Station: -2 Holland Score Total: 9 - Exam General: Alert, Oriented HEENT: PERRLA, Conjunctiva Clear, EACs Clear, EOMI, Hearing Intact, Mucosa Moist & [place], Nares Patent, Normal Nasal Septum, Posterior Pharynx Clear, TMs Clear Neck: Supple, Trachea Midline Lungs: Clear to Auscultation, Normal Respiratory Effort GI/Abdominal Exam: Normal Bowel Sounds, Soft, Non-Tender, No Organomegaly, No Distention, No Abnormal Bruit, No Mass, Pelvis Stable Rectal Exam: Normal Exam, Normal Rectal Tone Genitourinary: Normal external exam, Normal bimanual exam, Normal speculum exam Back Exam: Normal Inspection, Full Range of Motion Extremities: Normal Inspection, Normal Range of Motion, Non-Tender, No Pedal Edema, Normal Capillary Refill Skin: Warm, Dry, Intact Neurological: Cranial Nerves Intact, Reflexes Equal Bilateral Psychiatric: Alert, Normal Affect, Normal Mood - Patient Data Lab Results Last 24 hrs: Laboratory Results - last 24 hr 11/04/18 11/04/18 Range/Units 12:20 12:20 WBC 14.59 H (3.98-10.04) K/mm3 RBC 4.28 (3.98-5.22) M/mm3 Hgb 12.8 (11.2-15.7) gm/L Hct 39.0 (34.1-44.9) % MCV 91.1 (79.4-94.8) fl MCH 29.9 (25.6-32.2) pg MCHC 32.8 (32.2-35.5) g/dl RDW Std Deviation 45.0 (36.4-46.3) fL Plt Count 233 (182-369) K/mm3 MPV 9.2 L (9.4-12.3) fl Neut % (Auto) 84.4 H (34.0-71.1) % Lymph % (Auto) 9.5 L (19.3-51.7) % [place] % (Auto) 5.3 (4.7-12.5) % Eos % (Auto) 0.3 L (0.7-5.8) Baso % (Auto) 0.1 (0.1-1.2) % Neut # (Auto) 12.32 H (1.56-6.13) K/mm3 Lymph # (Auto) 1.38 (1.18-3.74) K/mm3 [place] # (Auto) 0.77 H (0.24-0.36) K/mm3 Eos # (Auto) 0.05 (0.04-0.36) K/mm3 Baso # (Auto) 0.01 (0.01-0.08) K/mm3 Manual Slide Review Abnormal smear RPR Non-reactive (NONREACTIVE) Result Diagrams: 11/04/18 12:20 Problem List Initiated/Reviewed/Updated: Yes Orders Last 24hrs: Active Orders 24 hr Category Date Time Status Patient Status [ADT] Routine ADT 11/04/18 12:01 Active Activity as Tolerated [RC] PFP Care 11/04/18 12:01 Active Communication Order [RC] ASDIRECTED Care 11/04/18 12:01 Active Notify Provider [RC] ASDIRECTED Care 11/04/18 12:38 Active Notify Provider [RC] PFP Care 11/04/18 12:01 Active Notify Provider [RC] PRN Care 11/04/18 12:01 Active Peripheral IV Care [RC] Q2HR Care 11/04/18 12:01 Active Up ad Keli [RC] ASDIRECTED Care 11/04/18 10:30 Active Urinary Catheter Assessment [RC] ASDIRECTED Care 11/04/18 12:00 Active Vital Signs [RC] PER UNIT ROUTINE Care 11/04/18 10:28 Active Regular Diet [DIET] Diet 11/04/18 Breakfast Active BLOOD BANK HOLD SPECIMEN [BBK] Stat Lab 11/04/18 12:00 Ordered Bupivacaine/fentaNYL/NS [fentaNYL/Bupivacaine/NS 2 MCG- Med 11/04/18 12:38 Active 0.125% 100 ML] 100 ml EPIDUR ASDIRECTED PRN Calcium Carbonate [Tums] Med 11/04/18 12:00 Active 1,000 mg PO Q2H PRN Lactated Ringers [Ringers, Lactated] 1,000 ml Med 11/04/18 12:00 Active IV ASDIRECTED Nalbuphine [Nubain] Med 11/04/18 12:00 Active 10 mg IVPUSH Q2H PRN Ondansetron [Zofran] Med 11/04/18 12:00 Active 4 mg IVPUSH Q4H PRN Oxytocin/Lactated Ringers [Pitocin in LR 10 Units/1,000 Med 11/04/18 12:00 Active ML] 10 unit in 1,000 ml IV .CONTINUOUS Sodium Chloride 0.9% [Saline Flush] Med 11/04/18 12:00 Active 10 ml FLUSH ASDIRECTED PRN diphenhydrAMINE [Benadryl] Med 11/04/18 12:38 Active 25 mg IVPUSH Q6H PRN ePHEDrine [ePHEDrine sulfate] Med 11/04/18 12:38 Active 5 mg IVPUSH ASDIRECTED PRN fentaNYL [Sublimaze] Med 11/04/18 12:38 Active 100 mcg EPIDUR Q3H PRN Electronic Heart Tones Ext w TOCO [WOMSER] Oth 11/04/18 12:01 Ordered Routine Electronic Heart Tones Internal [WOMSER] Per Unit Oth 11/04/18 12:01 Ordered Routine Peripheral IV Insertion Adult [OM.PC] Routine Oth 11/04/18 12:01 Ordered Resuscitation Status Routine Resus Stat 11/04/18 10:28 Ordered Medication Orders Calcium Carbonate/Glycine (Tums) 1,000 mg PO Q2H PRN PRN Reason: Indigestion Diphenhydramine HCl (Benadryl) 25 mg IVPUSH Q6H PRN PRN Reason: pruritis Ephedrine Sulfate (Ephedrine Sulfate) 5 mg IVPUSH ASDIRECTED PRN PRN Reason: Hypotension Fentanyl (Sublimaze) 100 mcg EPIDUR Q3H PRN PRN Reason: Pain Last Admin: 11/04/18 13:16 Dose: 100 mcg Fentanyl/Bupivacaine HCl (Fentanyl/Bupivacaine/Ns 2 Mcg-0.125% 100 Ml) 100 ml EPIDUR ASDIRECTED PRN PRN Reason: Pain Last Admin: 11/04/18 13:16 Dose: 100 ml Lactated Ringer's (Ringers, Lactated) 1,000 mls @ 100 mls/hr IV ASDIRECTED [facility] Last Admin: 11/04/18 13:37 Dose: 125 mls/hr Infusion: 11/04/18 13:37 Dose: 999 mls/hr Admin: 11/04/18 13:00 Dose: 999 mls/hr Infusion: 11/04/18 13:00 Dose: 999 mls/hr Admin: 11/04/18 12:20 Dose: 999 mls/hr Oxytocin/Lactated Ringer's (Pitocin In Lr 10 Units/1,000 Ml) 10 unit in 1,000 mls @ 500 mls/hr IV .CONTINUOUS [facility] Last Admin: 11/04/18 16:18 Dose: 500 mls/hr Nalbuphine HCl (Nubain) 10 mg IVPUSH Q2H PRN PRN Reason: pain Ondansetron HCl (Zofran) 4 mg IVPUSH Q4H PRN PRN Reason: Nausea/Vomiting Sodium Chloride (Saline Flush) 10 ml FLUSH ASDIRECTED PRN PRN Reason: Keep Vein Open Assessment/Plan Comment:: 33 year old here in active labor. Desires epidural. AROM once epidural in place.
--- NOTE | 2018-11-04 16:43 | PCM.SN ---
- Free Text/Narrative Note: Stage I - Patient presented in active labor. AROM clear fluid. Progressed to complete with overall reassuring FHT. Stage II - of viable male. Weight 3390. 8/9 APGARS at 1617. Head delivered in controlled manner over intact perineum. Body and shoulders followed atraumatically. Positive cry. Cord clamped and cut after 2 minutes. Cord blood collected. Stage III - of intact placenta 3vc. Small 1st degree vaginal laceration repaired with 3-0 vicryl. EBL 200
[2018-11-04] MEDS ORDERED: Benzocaine/Menthol 20%-0.5% Spray 56 GM Canister TOP PRN (17:53)
[2018-11-04] MEDS ORDERED: Witch Hazel Medicated Pads 40/Jar TOP PRN (17:53)
[2018-11-04] MEDS ORDERED: Lanolin 100% Cream 7 GM Tube TOP PRN (17:53)
[2018-11-04] MEDS: Ibuprofen 600 MG Tab PO PRN ×2 (18:27→23:59)
[2018-11-05] MEDS: Ibuprofen 600 MG Tab PO PRN ×2 (05:54→13:34)
--- NOTE | 2018-11-05 08:03 | PCM48HPAN ---
Post Anesthesia Note - EVALUATION WITHIN 48HRS OF ANESTHETIC Vital Signs in Normal Range: Yes Patient Participated in Evaluation: Yes Respiratory Function Stable: Yes Airway Patent: Yes Cardiovascular Function Stable: Yes Hydration Status Stable: Yes Pain Control Satisfactory: Yes Nausea and Vomiting Control Satisfactory: Yes Mental Status Recovered: Yes
--- NOTE | 2018-11-05 08:23 | PCM.SN ---
- Free Text/Narrative Note: Post Progress Note PPD # 1 Subjective: Doing well overall. Ambulating without difficulty. Lochia minimal. Voiding without difficulty. Tolerating regular diet without nausea or vomiting. Pain controlled with oral medications. Breast-feeding with minimal difficulty. Objective: Vitals: Vital Signs - 24 hr 11/04/18 11/04/18 11/04/18 10:22 10:28 10:33 Temperature Temperature [ 36.8 C Temporal] Pulse, 100 119 H Peripheral Pulse, 100 Peripheral [ Brachial] Respiratory 16 Rate Blood Pressure Blood Pressure 124/73 [Upper Arm] O2 Sat by Pulse Oximetry 11/04/18 11/04/18 11/04/18 13:06 13:19 13:31 Temperature Temperature [ Temporal] Pulse, 95 105 H Peripheral Pulse, Peripheral [ Brachial] Respiratory 16 Rate Blood Pressure Blood Pressure [Upper Arm] O2 Sat by Pulse 100 100 Oximetry 11/04/18 11/04/18 11/04/18 14:00 14:30 15:00 Temperature Temperature [ Temporal] Pulse, 104 H 88 106 H Peripheral Pulse, Peripheral [ Brachial] Respiratory Rate Blood Pressure 105/65 106/50 L Blood Pressure [Upper Arm] O2 Sat by Pulse Oximetry 11/04/18 11/04/18 11/04/18 15:30 16:00 16:32 Temperature Temperature [ Temporal] Pulse, 82 102 H 79 Peripheral Pulse, Peripheral [ Brachial] Respiratory Rate Blood Pressure 100/61 119/66 104/64 Blood Pressure [Upper Arm] O2 Sat by Pulse Oximetry 11/04/18 11/04/18 11/04/18 17:00 17:30 18:01 Temperature Temperature [ Temporal] Pulse, 74 76 67 Peripheral Pulse, Peripheral [ Brachial] Respiratory Rate Blood Pressure 112/65 112/68 113/61 Blood Pressure [Upper Arm] O2 Sat by Pulse Oximetry 11/04/18 11/04/18 11/05/18 21:05 21:09 03:12 Temperature 36.4 C Temperature [ 36.6 C Temporal] Pulse, 92 70 Peripheral Pulse, Peripheral [ Brachial] Respiratory 16 15 Rate Blood Pressure 123/70 108/70 Blood Pressure [Upper Arm] O2 Sat by Pulse 98 99 Oximetry Physical Exam General: Alert and oriented, no acute distress Lungs: Clear to auscultation bilaterally Heart: Regular rate and rhythm Abdomen: Soft, minimal appropriate tenderness, non-distended, fundus midline, nontender, and one finger breadth below the umbilicus Extremities: Trace edema in bilateral lower extremity stump mid shins ASSESSMENT: 33-year-old female s/p normal vaginal delivery PPD #1 uncomplicated PLAN: Doing well Breast-feeding with minimal difficulty. Assist as needed Lochia minimal. Continue to monitor for appropriate lochia. Continue routine care Anticipate discharge home today Shahbaz Montero MD 8:22 AM 11/05/2018
--- NOTE | 2018-11-05 08:32 | PCM.DCSUM1 ---
Discharge Summary - Hospital Course Free Text/Narrative:: Stage I - Patient presented in active labor. AROM clear fluid. Progressed to complete with overall reassuring FHT. Stage II - of viable male. Weight 3390. 8/9 APGARS at 1617. Head delivered in controlled manner over intact perineum. Body and shoulders followed atraumatically. Positive cry. Cord clamped and cut after 2 minutes. Cord blood collected. Stage III - of intact placenta 3vc. Small 1st degree vaginal laceration repaired with 3-0 vicryl. EBL 200 HPI Initial Comments: Stage I - Patient presented in active labor. AROM clear fluid. Progressed to complete with overall reassuring FHT. Stage II - of viable male. Weight 3390. 8/9 APGARS at 1617. Head delivered in controlled manner over intact perineum. Body and shoulders followed atraumatically. Positive cry. Cord clamped and cut after 2 minutes. Cord blood collected. Stage III - of intact placenta 3vc. Small 1st degree vaginal laceration repaired with 3-0 vicryl. EBL 200 Brief History: Stage I - Patient presented in active labor. AROM clear fluid. Progressed to complete with overall reassuring FHT. Stage II - of viable male. Weight 3390. 8/9 APGARS at 1617. Head delivered in controlled manner over intact perineum. Body and shoulders followed atraumatically. Positive cry. Cord clamped and cut after 2 minutes. Cord blood collected. Stage III - of intact placenta 3vc. Small 1st degree vaginal laceration repaired with 3-0 vicryl. EBL 200 Diagnosis: Stroke: No - Discharge Data Discharge Date: 11/05/18 Discharge Disposition: Home, Self-Care 01 Condition: Good - Discharge Diagnosis/Problem(s) (1) 37 weeks gestation of SNOMED Code(s): 12197067 ICD Code: Z3A.37 - 37 WEEKS GESTATION OF Status: Acute Current Visit: Yes (2) First degree perineal laceration during delivery SNOMED Code(s): 943993962 ICD Code: O70.0 - FIRST DEGREE PERINEAL LACERATION DURING DELIVERY Status: Acute Current Visit: Yes (3) Vaginal delivery SNOMED Code(s): 206681614 ICD Code: O80 - ENCOUNTER FOR FULL-TERM UNCOMPLICATED DELIVERY Status: Acute Current Visit: No - Patient Summary/Data Complications: None Consults: None Hospital Course: Su Sifuentes was admitted for active labor. On admission her cervix was dilated to 3 cm and changed to 4 cm. She was GBS negative. She was given an epidural for anesthesia. She had artificial rupture of membranes with clear fluid. She progressed to complete and began pushing. On 11/04/2018 she had a normal vaginal delivery of a live male infant at 1617. Apgars of 8 and 9. Weight of 3390 g (7 pounds 7.6 ounces). Her course was uneventful. Her pain was well controlled and she had minimal lochia. She was ambulating, tolerating a regular diet and voiding normally. She was breast-feeding with minimal difficulty. She was afebrile and her hematocrit was 39.0 on admission. She desired to be discharged home in the afternoon of PPD #1. Her blood type is A+. - Patient Instructions Diet: Regular Diet as Tolerated Activity: Apply Ice, As Tolerated Activity, Other: Nothing in the vagina for 6 weeks Driving: May Drive Today Showering/Bathing: May Shower Notify Provider of: Fever, Increased Pain, Swelling and Redness, Drainage, Nausea and/or Vomiting Other/Special Instructions: Please contact your physician's office if you have heavy vaginal bleeding enough to soak a pad in less than an hour for several hours. Monitor for any signs of an infection in the breasts with severe pain or redness of the breast. - Discharge Plan *PRESCRIPTION DRUG MONITORING PROGRAM REVIEWED*: Not Applicable *COPY OF PRESCRIPTION DRUG MONITORING REPORT IN PATIENT [place]: Not Applicable Home Medications: Home Meds Pnv No.122/Iron/Folic Acid [ Multi Tablet] 1 each PO DAILY 11/04/18 [ History] Benzocaine/Menthol [Dermoplast Pain Relief [place]] 1 spray TOP ASDIRECTED PRN canister 11/05/18 [Rx] Ibuprofen [Motrin] 600 mg PO Q6H PRN tablet 11/05/18 [Rx] Lanolin [Lansinoh HPA] 1 applic TOP ASDIRECTED PRN tube 11/05/18 [Rx] Witch Candelaria [Tucks] 1 pad TOP ASDIRECTED PRN pad 11/05/18 [Rx] Patient Handouts: Vaginal Delivery, Care After, Care of a Perineal Tear Referrals: Bernadette Castro MD [Primary Care Provider] - (Follow-up in 6 weeks or earlier as needed for routine visit.) - Discharge Summary/Plan Comment DC Time >30 min.: No - Patient Data Vitals - Most Recent: Last Vital Signs Temp 36.4 C 11/05/18 03:12 Pulse 70 11/05/18 03:12 Resp 15 11/05/18 03:12 BP 108/70 11/05/18 03:12 Pulse Ox 99 11/05/18 03:12 Weight - Most Recent: 75.07 kg I&O - Last 24 hours: Intake & Output 11/04/18 11/05/18 11/05/18 22:59 06:59 14:59 Intake Total 4000 Output Total 600 Balance 3400 Lab Results - Last 24 hrs: Laboratory Results - last 24 hr 11/04/18 11/04/18 Range/Units 12:20 12:20 WBC 14.59 H (3.98-10.04) K/mm3 RBC 4.28 (3.98-5.22) M/mm3 Hgb 12.8 (11.2-15.7) gm/L Hct 39.0 (34.1-44.9) % MCV 91.1 (79.4-94.8) fl MCH 29.9 (25.6-32.2) pg MCHC 32.8 (32.2-35.5) g/dl RDW Std Deviation 45.0 (36.4-46.3) fL Plt Count 233 (182-369) K/mm3 MPV 9.2 L (9.4-12.3) fl Neut % (Auto) 84.4 H (34.0-71.1) % Lymph % (Auto) 9.5 L (19.3-51.7) % [place] % (Auto) 5.3 (4.7-12.5) % Eos % (Auto) 0.3 L (0.7-5.8) Baso % (Auto) 0.1 (0.1-1.2) % Neut # (Auto) 12.32 H (1.56-6.13) K/mm3 Lymph # (Auto) 1.38 (1.18-3.74) K/mm3 [place] # (Auto) 0.77 H (0.24-0.36) K/mm3 Eos # (Auto) 0.05 (0.04-0.36) K/mm3 Baso # (Auto) 0.01 (0.01-0.08) K/mm3 Manual Slide Review Abnormal smear RPR Non-reactive (NONREACTIVE) Med Orders - Current: Current Medications Benzocaine/Menthol (Dermoplast Pain Relief [place]) 0 gm TOP ASDIRECTED PRN PRN Reason: Perineal Comfort Measure Last Admin: 11/04/18 18:26 Dose: 1 can Emollient Ointment (Lansinoh Hpa) 0 gm TOP ASDIRECTED PRN PRN Reason: Sore Nipples Last Admin: 11/04/18 18:26 Dose: 1 tube Ibuprofen (Motrin) 600 mg PO Q6H PRN PRN Reason: Mild pain or fever Last Admin: 11/05/18 05:54 Dose: 600 mg Witch [place] (Tucks) 1 pad TOP ASDIRECTED PRN PRN Reason: Pain Last Admin: 11/04/18 18:26 Dose: 1 container Discontinued Medications Calcium Carbonate/Glycine (Tums) 1,000 mg PO Q2H PRN PRN Reason: Indigestion Diphenhydramine HCl (Benadryl) 25 mg IVPUSH Q6H PRN PRN Reason: pruritis Ephedrine Sulfate (Ephedrine Sulfate) 5 mg IVPUSH ASDIRECTED PRN PRN Reason: Hypotension Fentanyl (Sublimaze) 100 mcg EPIDUR Q3H PRN PRN Reason: Pain Last Admin: 11/04/18 13:16 Dose: 100 mcg Fentanyl/Bupivacaine HCl (Fentanyl/Bupivacaine/Ns 2 Mcg-0.125% 100 Ml) 100 ml EPIDUR ASDIRECTED PRN PRN Reason: Pain Last Admin: 11/04/18 13:16 Dose: 100 ml Lactated Ringer's (Ringers, Lactated) 1,000 mls @ 100 mls/hr IV ASDIRECTED BRAYDEN Last Admin: 11/04/18 13:37 Dose: 125 mls/hr Oxytocin/Lactated Ringer's (Pitocin In Lr 10 Units/1,000 Ml) 10 unit in 1,000 mls @ 500 mls/hr IV .CONTINUOUS BRAYDEN Last Admin: 11/04/18 16:18 Dose: 500 mls/hr Lidocaine HCl (Xylocaine 1%) 20 ml INJECT ONETIME ONE Stop: 11/04/18 12:01 Last Admin: 11/04/18 19:50 Dose: Not Given Nalbuphine HCl (Nubain) 10 mg IVPUSH Q2H PRN PRN Reason: pain Ondansetron HCl (Zofran) 4 mg IVPUSH Q4H PRN PRN Reason: Nausea/Vomiting Sodium Chloride (Saline Flush) 10 ml FLUSH ASDIRECTED PRN PRN Reason: Keep Vein Open
[2018-11-05 13:46] VITALS: BP 117/73
== END 2018-11-05 17:20 | disposition home or self-care (01) | DRG 807 ==
LOC: JD.OBCHECK 09:54 → JD.OB 09:56 → JD.OBCHECK 12:00 → JD.OB 12:01 → OBSVTOIN 16:17 → JD.OB 16:18
PROVIDERS: ADMIT Obstetrics & Gynecology; ATTEND Obstetrics & Gynecology
PROC: 6A550ZT Pheresis of Cord Blood Stem Cells, Single (ICD-10-PCS; principal; 2018-11-04)
PROC: 10E0XZZ Delivery of Products of Conception, External Approach (ICD-10-PCS; principal; 2018-11-04)
PROC: 10907ZC Drainage of Amniotic Fluid, Therapeutic from Products of Conception, Via Natural or Artificial Opening (ICD-10-PCS; principal; 2018-11-04)
PROC: 0HQ9XZZ Repair Perineum Skin, External Approach (ICD-10-PCS; principal; 2018-11-04)
PROC: 00HU33Z Insertion of Infusion Device into Spinal Canal, Percutaneous Approach (ICD-10-PCS; 2018-11-04)
PROC: 3E0R3BZ Introduction of Anesthetic Agent into Spinal Canal, Percutaneous Approach (ICD-10-PCS; 2018-11-04)
DX: O70.0 First degree perineal laceration during delivery (principal); Z37.0 Single live birth; Z3A.37 37 weeks gestation of pregnancy
CPT/HCPCS: 36415; 51702; 59025; 59409; 85025; 86592; A9270-GY; J2590; J3010; J3490; J7120

== ENCOUNTER 2022-04-16 07:06 | Inpatient (IN) | payer OTHER ==
[~2022-04-16 07:06] MED LIST: Bupivacaine 0.25% 10 ML SDV ONE
[2022-04-16] MEDS ORDERED: Ondansetron 4 MG/2 ML SDV IVPUSH PRN (08:09)
[2022-04-16] MEDS ORDERED: Nalbuphine HCl 10 MG/ 1ML Amp IVPUSH PRN (08:09)
[2022-04-16] MEDS ORDERED: Sodium Chloride 0.9% 10 ML Syringe FLUSH PRN (08:09)
[2022-04-16] MEDS ORDERED: Oxytocin/Lactated Ringers 10 UNIT/1,000 ML BAG IV SCH (08:15)
[2022-04-16] MEDS ORDERED: Sodium Chloride 0.9% 10 ML Syringe FLUSH SCH (09:00)
[2022-04-16] MEDS: Lactated Ringers 1,000 ML IV SCH ×2 (11:22→12:04)
[2022-04-16] MEDS ORDERED: diphenhydrAMINE 50 MG/ML SDV IVPUSH PRN (11:35)
[2022-04-16] MEDS ORDERED: fentaNYL 100 MCG/2 ML SDV EPIDUR PRN (11:35)
[2022-04-16] MEDS ORDERED: ePHEDrine 50 MG/ML SDV IVPUSH PRN (11:35)
[2022-04-16] MEDS ORDERED: Bupivacaine/fentaNYL/NS 100 ML Bag EPIDUR PRN (11:35)
[2022-04-16] MEDS ORDERED: Docusate Sodium 100 MG Cap PO PRN (14:25)
[2022-04-16] MEDS ORDERED: Witch Hazel Medicated Pads 40/Jar TOP PRN (14:25)
[2022-04-16] MEDS ORDERED: Benzocaine/Menthol 20%-0.5% Spray 78 GM Cannister TOP PRN (14:25)
[2022-04-16] MEDS: Ibuprofen 600 MG Tab PO PRN (21:00)
[2022-04-16] MEDS: Acetaminophen 325 MG Tab PO PRN (21:00)
[2022-04-17] MEDS: Acetaminophen 325 MG Tab PO PRN (04:57)
[2022-04-17] MEDS: Ibuprofen 600 MG Tab PO PRN (04:57)
[2022-04-17 16:35] VITALS: BP 129/74; PULSE 91
== END 2022-04-17 15:00 | disposition home or self-care (01) | DRG 807 ==
LOC: JD.OB 07:06 → JD.OBCHECK 07:06 → JD.OB 08:09 → OBSVTOIN 13:54 → JD.OB 13:55
PROVIDERS: ADMIT Obstetrics & Gynecology; ATTEND Obstetrics & Gynecology
PROC: 10E0XZZ Delivery of Products of Conception, External Approach (ICD-10-PCS; principal; 2022-04-16)
PROC: 0KQM0ZZ Repair Perineum Muscle, Open Approach (ICD-10-PCS; 2022-04-16)
PROC: 10907ZC Drainage of Amniotic Fluid, Therapeutic from Products of Conception, Via Natural or Artificial Opening (ICD-10-PCS; 2022-04-16)
PROC: 3E0R3BZ Introduction of Anesthetic Agent into Spinal Canal, Percutaneous Approach (ICD-10-PCS; 2022-04-16)
PROC: 00HU33Z Insertion of Infusion Device into Spinal Canal, Percutaneous Approach (ICD-10-PCS; 2022-04-16)
DX: O70.1 Second degree perineal laceration during delivery (principal); Z37.0 Single live birth; Z3A.39 39 weeks gestation of pregnancy
CPT/HCPCS: 36415; 51701; 59025; 59409; 85027; 86592; 86850; 86900; 86901; A9270-GY; J2590; J3010; J3490; J7120